=== PATIENT | male | born 1965 | race Caucasian/White ===

== ENCOUNTER 2024-10-06 07:09 | Outpatient (CLI) | payer OTHER, SELFPAY ==
--- NOTE | ~2024-10-06 | MR_ITS ---
MRI of the right shoulder Technique: Axial proton-density fat-sat images, coronal proton density fat-sat and T2 fat-sat images, and sagittal T1-weighted and T2 fat-sat images were acquired. Clinical History: Pain Findings: There is moderate to advanced AC joint degenerative change with bony productive change of t he distal clavicle in particular. Minimal subacromial spur. Coracoclavicular, coracoacromial, and cor acohumeral ligaments are intact. There is an 8 mm probable full-thickness tear at the very distal, anterior supraspinatus tendon inser tion. There is mild to moderate background tendinosis of the supraspinatus tendon. Infraspinatus tend on is intact. There is moderate subscapularis tendinosis with apparent tearing of the distal transver se and fibers, with associated medial subluxation/dislocation of the biceps tendon from the bicipital groove superiorly. No labral tear evident. Inferior glenohumeral ligament demonstrates minimal thickening and increased signal. No degenerative change or effusion of the glenohumeral joint. Minimal fluid present in the subacromial/subdeltoid bur sa. There is fluid distention of the subscapularis recess. No muscle atrophy or edema.. Impression: 8 mm full-thickness tear at the distal, anterior supraspinatus tendon insertion. Medial subluxation/dislocation of the biceps tendon from the bicipital groove superiorly with underly ing tearing of the distal transverse segment fibers of the subscapularis tendon. Background rotator cuff tendinosis. Moderate to advanced AC joint degenerative change. Questionable adhesive capsulitis. Reviewed, dictated and finalized at [facility]. Impression: 8 mm full-thickness tear at the distal, anterior supraspinatus tendon insertion . Medial subluxation/dislocation of the biceps tendon from the bicipital groove s uperiorly with underlying tearing of the distal transverse segment fibers of th e subscapularis tendon. Background rotator cuff tendinosis. Moderate to advanced AC joint degenerative change. Questionable adhesive capsulitis.
== END 2024-10-06 07:10 | disposition home or self-care (01) ==
PROVIDERS: PCP Physician Assistant Medical; Visit Provider Physician Assistant Medical
DX: M19.011 Primary osteoarthritis, right shoulder (principal); M75.101 Unspecified rotator cuff tear or rupture of right shoulder, not specified as traumatic
CPT/HCPCS: 73221